=== PATIENT | male | born 1940 | race Caucasian/White ===

== ENCOUNTER 2024-05-19 18:34 | Emergency (ER) | payer MEDICARE ==
[2024-05-19 19:12] LABS: INR-International Normal Ratio 0.9; Prothrombin Time 11.9 sec (12.0-14.7)
[2024-05-19 19:15] LABS: PTT 21.1 sec (22.9-36.1)
[2024-05-19 19:25] LABS: ALT (SGPT) 22 U/L (8-55); AST (SGOT) 20 U/L (5-34); Albumin 4.4 g/dL (3.4-4.8); Alkaline Phosphatase 86 U/L (40-110); Anion Gap 18 mmol/L (10-20); BUN (Urea Nitrogen) 34 mg/dL (8.4-25.7); Bilirubin, Total 0.3 mg/dL (0.2-1.2); Calc. Creatinine Clearance 0 mL/min (70-130); Carbon Dioxide 23 mmol/L (23-31); Chloride 108 mmol/L (98-107); Estimated GFR 43; Globulin 3.3 g/dL (2.4-3.5); Glucose 125 mg/dL (83-110); Lipase 38 U/L (8-78); Magnesium 2.2 mg/dL (1.6-2.6); Potassium 5.1 mmol/L (3.5-5.1); Protein, Total 7.7 g/dL (5.8-8.1); Sodium 144 mmol/L (136-145); Troponin I Less than 0.010 ng/mL (< 0.028)
[2024-05-19 19:33] LABS: Band 1 % (5-11); Eosinophils 6 % (0-10); Hematocrit 42.5 % (42.0-52.0); Hemoglobin 13.9 g/dL (14.0-18.0); Lymphocytes 20 % (21-51); MDiff Complete? YES; Manual Diff?? YES; Mean Corpuscular HGB CONC 32.6 g/dL (32.0-36.0); Mean Corpuscular Hemoglobin 29.4 pg (27.0-31.0); Mean Corpuscular Volume 90.1 fl (78.0-98.0); Mean Platelet Volume 8.2 fL (7.4-10.4); Monocytes 6 % (0-10); Neutrophil 55 % (42-75); Platelet Adequacy Comment Appears Adequate; Platelet Count 265 10x3/uL (130-400); RBC Distribution Width 12.5 % (11.5-14.5); Reactive Lymphocytes 12 % (0-10); Red Blood Cell (RBC) Count 4.72 mill/uL (4.70-6.10); White Blood Cell (WBC) Count 10.1 10x3/uL (4.8-10.8)
[2024-05-19] MEDS ORDERED: Acetaminophen 500 MG TAB ONE (20:04)
[2024-05-19] MEDS ORDERED: Aspirin Chewable 81 MG TAB ONE (20:05)
== END 2024-05-19 21:03 | disposition home or self-care (01) ==
LOC: MADERS 18:34
DX: R42 Dizziness and giddiness (principal); N17.9 Acute kidney failure, unspecified; R00.1 Bradycardia, unspecified; R60.0 Localized edema
CPT/HCPCS: 36416; 70450; 71045; 80053; 83605; 83690; 83735; 83880; 84443; 84484; 85025; 85610; 85730; 87040; 93005; 94760